=== PATIENT | male | born 1950 | race Caucasian/White ===

== ENCOUNTER → 2016-08-01 | Outpatient (CLI) | payer MEDICARE, OTHER ==
[~2016-08-01] MED LIST: ASPI-1085 PO; LOSA1TAB95 PO; METO50TA5 PO; NAPR220T61 PO; SIMV40TA5 PO
== END ==
LOC: LAB 08:15
PROVIDERS: ATTEND Urology
DX: R97.20 Elevated prostate specific antigen [PSA] (principal)
CPT/HCPCS: 36415; 84153